=== PATIENT | male | born 1955 | race Caucasian/White ===

== ENCOUNTER 2022-06-03 19:11 | Emergency (ER) | payer MEDICARE ==
[~2022-06-03 19:11] MED LIST: DELSYM30 MG/5 ML PO; DOXYCYCLINE HY100 M2 PO; FLONASE 0.05% N16 GM; IBUPROFEN600 MG PO; PREDNISONE 50 M50 MG PO; ZOVIRAX 800 MG800 MG PO
== END 2022-06-03 19:58 | disposition left against medical advice (07) ==
LOC: ER1
DX: R53.1 Weakness (principal); M54.9 Dorsalgia, unspecified; R10.9 Unspecified abdominal pain; R06.02 Shortness of breath
CPT/HCPCS: 93005; 99281